=== PATIENT | male | born 1980 | race African-American/Black ===

== ENCOUNTER 2017-12-06 20:12 | Emergency (ER) | payer OTHER ==
[~2017-12-06] VITALS: Ht 175.3 cm; Wt 73.0 kg
[2017-12-06 22:05] LABS: EOSINOPHILS % 1.8 % (0.0-5.0); HEMATOCRIT. 37.1 % (42.0-52.0); HEMOGLOBIN. 12.4 g/dL (14.0-18.0); LYMPHOCYTES % 48.4 % (20.0-50.0); MEAN CORPUSCULAR HEMOGLOBIN 27.3 pg (28.0-32.0); MEAN CORPUSCULAR VOLUME 81.8 fL (80.0-94.0); MEAN PLATELET VOLUME 7.5 fl (7.4-10.4); MONOCYTES % 8.1 % (2.0-8.0); NEUTROPHILS % 40.7 % (40.0-76.0); PLATELET 278 x1000/uL (130-400); RED BLOOD CELL COUNT 4.54 mill/uL (4.7-6.1); RED CELL DISTRIBUTION WIDTH 15.6 % (11.6-14.6)
[2017-12-06 22:11] LABS: CHLORIDE 108 mEq/L (98-107)
[2017-12-06 23:34] LABS: CLARITY URINE CLEAR (CLEAR); COLOR URINE YELLOW (YELLOW); KETONES URINE NEGATIVE (NEGATIVE); LEUKOCYTE ESTERASE URINE NEGATIVE (NEGATIVE); NITRITE URINE NEGATIVE (NEGATIVE); OCCULT BLOOD URINE NEGATIVE (NEGATIVE); PROTEIN URINE NEGATIVE (NEGATIVE); UROBILINOGEN URINE 0.2 E.U./dL (0.2-1.0)
[2017-12-07 07:44] VITALS: BP 124/71
== END 2017-12-07 08:47 | disposition home or self-care (01) ==
LOC: ER 20:12
DX: R42 Dizziness and giddiness (principal); M79.604 Pain in right leg; F17.210 Nicotine dependence, cigarettes, uncomplicated; F12.90 Cannabis use, unspecified, uncomplicated; Z59.0 Homelessness; Z71.6 Tobacco abuse counseling
CPT/HCPCS: 36415; 71045; 80053; 81003; 85025; 93005; 99285; 99406

== ENCOUNTER 2024-07-11 16:45 | Emergency (ER) | payer MEDICAID, OTHER ==
[~2024-07-11] VITALS: Ht 177.8 cm; Wt 73.0 kg
[2024-07-11 16:48] VITALS: BP 118/80; PULSE 77; RESP 19; TEMP 36.9; O2SAT 98
== END 2024-07-11 19:40 | disposition home or self-care (01) ==
LOC: ER 16:45
DX: R53.1 Weakness (principal); F10.90 Alcohol use, unspecified, uncomplicated; F12.90 Cannabis use, unspecified, uncomplicated; Y90.9 Presence of alcohol in blood, level not specified
CPT/HCPCS: 99283